=== PATIENT | female | born 1955 | race Caucasian/White ===

== ENCOUNTER 2020-01-12 22:44 | Emergency (ER) | payer MEDICARE, BC ==
[2020-01-12] MEDS ORDERED: ASPIRIN 81 MG TABLET, CHEWABLE PO ONE (23:32)
--- NOTE | 2020-01-12 23:33 | ER Document Report ---
ED Cardiac - General Chief Complaint: Chest Pain Stated Complaint: CHEST PAIN Time Seen by Provider: 01/12/20 23:32 Primary Care Provider: SANFORD ORDONEZ MD [NO LOCAL MD] - Follow up as needed TRAVEL OUTSIDE OF THE [place] IN LAST 30 DAYS: No - HPI Notes: 64-year-old female presents with chest pain. Patient reports onset of chest pain around 7:30 PM while at rest. States that it was started off as a heaviness and sharpness in her left lateral chest, has now moved to the center. Currently feels like a cinderblock is sitting on her chest. Has become progressively worse. She has no radiation of pain. Denies intrascapular pain. Took 1 baby aspirin without relief. She has no shortness of breath or diaphoresis. She has a history of high cholesterol for which she takes a statin. She denies previous known history of cardiac disease, she has not had a stress test previously. She denies use of blood thinners, recent surgery or head bleed. - Related Data Allergies/Adverse Reactions: No Known Allergies Allergy (Unverified 07/18/10 14:48) Past Medical History - General Information source: Patient - Social History Smoking Status: Never Smoker Chew tobacco use (# tins/day): No Frequency of alcohol use: None Drug Abuse: None Family History: Reviewed & Not Pertinent - Past Medical History Cardiac Medical History: Reports: Hx Hypercholesterolemia Denies: Hx Coronary Artery Disease, Hx Heart Attack, Hx Hypertension Pulmonary Medical History: Denies: Hx Asthma, Hx Bronchitis, Hx COPD, Hx Pneumonia Neurological Medical History: Denies: Hx Cerebrovascular Accident, Hx Seizures Musculoskeletal Medical History: Reports Hx Arthritis Past Surgical History: Reports: Hx Hysterectomy - PARTIAL, Hx Orthopedic Surgery - right knee. Denies: Hx Pacemaker Review of Systems - Review of Systems Constitutional: denies: Fever EENT: No symptoms reported Cardiovascular: Chest pain Respiratory: denies: Short of breath Gastrointestinal: denies: Abdominal pain, Nausea, Vomiting Genitourinary: No symptoms reported Female Genitourinary: No symptoms reported Musculoskeletal: denies: Back pain Skin: No symptoms reported Hematologic/Lymphatic: No symptoms reported Neurological/Psychological: No symptoms reported Physical Exam - Vital signs Vitals: Temp 97.4 F 01/12/20 22:44 - General General appearance: Appears well, Alert In distress: None - HEENT Head: Normocephalic, Atraumatic Extraocular movements intact: Yes Pupils: PERRL - Respiratory Chest status: Nontender Breath sounds: Normal - Cardiovascular Rhythm: Regular Heart sounds: Normal auscultation Murmur: No Pulses: Normal: Radial Normal capillary refill: Yes - Abdominal Tenderness: Nontender - Extremities General lower extremity: No: Edema - Neurological Neuro grossly intact: Yes Cognition: Normal Orientation: AAOx4 - Psychological Associated symptoms: Normal affect - Skin Skin Temperature: Warm Course - Re-evaluation Re-evalutation: 64-year-old female history HLD here with central chest pressure/pain, progressively worsening. Heart is RRR, lungs are clear, no peripheral edema. Hemodynamically stable. Initial EKG from triage has minimal ST elevation in 1/aVL, however is less than 1 box, therefore not STEMI criteria at this time. Will repeat serial EKGs. Cardiac work-up to be initiated. Highly concern for an STEMI versus unstable angina. She is not writhing in bed, has symmetric radial pulses, lower suspicion for dissection. 324 mg aspirin and sublingual nitro ordered. 01/13/20 00:22 Reassessed patient. She reports after 2 sublingual nitro it did not really change her pain, however 2 mg of morphine has greatly helped her pain. She remains hemodynamically stable. I discussed the repeat EKG findings with her. Even that there is some improvement of her EKG following the nitro, will start nitro infusion at this time 01/13/20 00:[address] Dave network control technician for cardiology. Discussed EKG changes and positive troponin which is just resulted. He states that patient will need a cath, he requested to be transferred to [facility] if possible. Heparin bolus/infusion ordered 01/13/20 00:35 Called the transfer center at [facility] to initiate transfer, I discussed patient will be needing a cath. Per the transfer center, hopeful patient would be accepted in the morning. There currently are no beds available. Awaiting callback from physician. 01/13/20 00:43 Received a call back from the transfer center, plan is as of now patient will be added to the [facility] schedule in the morning, she likely will be transferred from ED to the [facility]. I have been instructed to call back if patient becomes unstable as there would be an ICU bed 01/13/20 00:51 Patient updated on current plan. She remains hemodynamically stable 01/13/20 06:02 Troponin has now peaked. 2.5 to 3.1 to 2.9 Patient care to be turned over to Dr. Coats, pending transfer to [facility] - Vital Signs Vital signs: Temp Pulse Resp BP Pulse Ox 97.7 F 68 18 121/74 98 01/13/20 05:11 01/12/20 23:08 01/13/20 05:01 01/13/20 05:01 01/13/20 05:01 - Laboratory Result Diagrams: 01/12/20 23:20 01/12/20 23:20 Laboratory results interpreted by me: 01/12/20 01/12/20 23:20 23:20 RDW 15.5 H Sodium 133.2 L - Diagnostic Test Radiology reviewed: Image reviewed, Reports reviewed - EKG Interpretation by Me Additional EKG results interpreted by me: EKG as interpreted by me, performed at 2250. Sinus rhythm, rate 69. Leads I/aVL are abnormal, however elevation is less than 1 box. PVC present. Change from previous EKG dated 10/16/2014 01/13/20 00:02 Repeat EKG, performed at 2357. The slight elevation in 1/aVL has resolved, there is now T wave inversion. There is now biphasic T in V3/V4 01/13/20 03:27 Repeat EKG, performed 0312. No ST segment elevation. The biphasic T waves in V3/V4 have resolved. Overall improved from previous. Critical Care Note - Critical Care Note Total time excluding time spent on procedures (mins): 45 - N STEMI, heparin drip, nitro drip, elevated troponins Discharge - Discharge Clinical Impression: NSTEMI (non-ST elevated myocardial infarction) Disposition: [facility] Referrals: SANFORD ORDONEZ MD [NO LOCAL MD] - Follow up as needed
[2020-01-12] MEDS: NITROGLYCERIN 0.4 MG/TAB 25 TAB/BOTTLE SL PRN (23:41)
[2020-01-12 23:51] LABS: ABSOLUTE BASOPHILS # (AUTO) 0.1 10^3/uL (0.0-0.2); ABSOLUTE EOSINOPHILS # (AUTO) 0.3 10^3/uL (0.0-0.6); ABSOLUTE LYMPHOCYTES (AUTO) 1.4 10^3/uL (0.5-4.7); ABSOLUTE MONOCYTES (AUTO) 0.7 10^3/uL (0.1-1.4); ABSOLUTE NEUT (AUTO) 4.8 10^3/uL (1.7-8.2); BASOPHILS % (AUTO) 1.2 % (0-2); EOSINOPHILS % (AUTO) 3.7 % (0-6); HEMATOCRIT 36.5 % (36.0-47.0); HEMOGLOBIN 12.6 g/dL (12.0-15.5); LYMPHOCYTES % (AUTO) 19.3 % (13-45); MEAN CORPUSCULAR HEMOGLOBIN 28.9 pg (27.0-33.4); MEAN CORPUSCULAR HGB CONC 34.7 g/dL (32.0-36.0); MEAN CORPUSCULAR VOLUME 83 fl (80-97); MONOCYTES % (AUTO) 9.3 % (3-13); PLATELET COUNT 297 10^3/uL (150-450); RED BLOOD COUNT 4.37 10^6/uL (3.72-5.28); RED CELL DISTRIBUTION WIDTH 15.5 % (11.5-14.0); SEGMENTED NEUTROPHILS % (AUTO) 66.5 % (42-78); TOTAL CELLS COUNTED % (AUTO) 100 %; WHITE BLOOD COUNT 7.2 10^3/uL (4.0-10.5)
[2020-01-12 23:58] LABS: INTERNATIONAL RATION (INR) 0.92; PROTHROMBIN TIME 12.6 SEC (11.4-15.4)
[2020-01-12 23:59] LABS: PARTIAL THROMBOPLASTIN TIME 34.4 SEC (23.5-35.8)
[2020-01-13] LABS: ANION GAP 6 (5-19); BLOOD UREA NITROGEN 9 mg/dL (7-20); CALCIUM 9.3 mg/dL (8.4-10.2); CARBON DIOXIDE 27 mmol/L (22-30); CHLORIDE 100 mmol/L (98-107); GLUCOSE 109 mg/dL (75-110); POTASSIUM 3.9 mmol/L (3.6-5.0)
[2020-01-13] MEDS: NITROGLYCERIN 0.4 MG/TAB 25 TAB/BOTTLE SL PRN (00:01)
[2020-01-13] MEDS ORDERED: MORPHINE SULFATE 10 MG/ML INJ IV ONE (00:02)
[2020-01-13] MEDS ORDERED: NITROGLYCERIN/D5W 50 MG/250 ML RTUINJ IV PRN (00:24)
[2020-01-13] MEDS ORDERED: HEPARIN SODIUM,PORCINE/D5W 25,000 UNIT/250 ML RTUINJ IV PRN (00:29)
[2020-01-13] MEDS ORDERED: HEPARIN SOD (PORCINE) 1,000 UNIT/ML 10 ML VIAL IV ONE (00:29)
--- NOTE | 2020-01-13 00:46 | RADIOLOGY REPORT (SQ) ---
XR CHEST 1 VIEW HISTORY: Chest pain. COMPARISON: 10/15/2014 FINDINGS: The heart size is within normal limits. There is no pulmonary vascular congestion. No consolidation, pleural effusion, or pneumothorax is seen. No acute bony findings are seen. IMPRESSION: No evidence of acute cardiopulmonary disease.
[2020-01-13] MEDS ORDERED: HEPARIN SOD (PORCINE) 1,000 UNIT/ML 10 ML VIAL IV PRN (03:29)
[2020-01-13] MEDS: MORPHINE SULFATE 10 MG/ML INJ IV PRN ×3 (04:02→09:15)
[2020-01-13] MEDS ORDERED: TICAGRELOR 90 MG TABLET PO STA (09:24)
--- NOTE | 2020-01-13 09:27 | ER Document Report ---
Doctor's Note Notes: 01/13/20 09:26 The patient continues to have pain. EKG does suggest slightly less than [address] elevation in lead I and aVL. Dr. Dave has been involved in the patient's care, and his got her accepted at [facility] to go directly to the [facility]. He is requesting that we add Brilinta 180 mg p.o. to her current regimen. Earlier he had her nitroglycerin drip increased due to her ongoing pain. 01/13/20 10:26 Dr. Dave since informed me that Dr. Modi has accepted the patient at [facility] and plans to take her directly to the cardiac [employer] [facility]. I have filled out the EMTALA form on his behalf.
--- NOTE | 2020-01-13 09:58 | PDOC CONSULTATION ---
Consultation Consult Date: 01/13/20 Attending physician:: KIMBERLY BABIN Provider Consulted: BETZY DIANE Consult reason:: NSTEMI History of Present Illness Admission Date/PCP: RUSS BLOOM MD History of Present Illness: ANA DAILEY is a 64 year old female with history of arthritis and hyperlipidemia who is consulted to our service for evaluation of myocardial infarction. The patient is a non-smoker. She had been in her usual state of health until last night when, while in a meeting at [employer], she became emotionally upset and developed chest pain. She went home and decided to come to the hospital after 2.5 hours of chest pain that she described as a substernal pressure, severe in nature, radiating to both sides of the chest and not associated with palpitations, diaphoresis, syncope or presyncope. In the emergency room she was found to have a positive troponin which has now peaked at 3.1. Her first EKG is borderline for STEMI however her last EKG no longer meet STEMI criteria. She was placed on a heparin drip and a nitroglycerin drip which had been titrated up to 15 mcg due to recurrence of her chest pain. She recently was administered 2 mg of morphine IV by the ER staff with significant improvement of her chest pain. Physical exam on 01/13/2020 in the emergency room: GENERAL: Pleasant and conversational. Oriented x3 with normal mood. Not in acute distress. Well groomed and well developed. HEENT: Normocephalic, atraumatic. Pupils equal. Sclerae anicteric. Oropharynx moist. NECK: No JVD. No carotid bruits. LUNGS: Clear to auscultation bilaterally. Normal respiratory effort without the use of accessory muscles or intercostal retractions. CARDIOVASCULAR: Regular rate and rhythm, normal S1 and S2 without murmurs, rubs, or gallops. PMI not displaced. ABDOMEN: No masses or tenderness to palpation. No bruit. No splenomegaly or hepatomegaly. No abdominal aorta bruit noted. EXTREMITIES: No edema, no cyanosis, no clubbing. +2 pulses femoral and pedal pulses bilaterally. SKIN: No lesions or rashes. MUSCULOSKELETAL: No chest tenderness to palpation. NEUROLOGIC: Nonfocal. No gross sensory or motor deficits bilateral upper or lower extremities. Past Medical History Cardiac Medical History: Reports: Hyperlipidema Denies: Coronary Artery Disease, Myocardial Infarction, Hypertension Pulmonary Medical History: Denies: Asthma, Bronchitis, Chronic Obstructive Pulmonary Disease (COPD), Pneumonia Neurological Medical History: Denies: Seizures Musculoskeltal Medical History: Reports: Arthritis Hematology: Denies: Anemia Past Surgical History Past Surgical History: Reports: Hysterectomy - PARTIAL, Orthopedic Surgery - right knee Denies: Pacemaker Social History Smoking Status: Never Smoker Electronic Cigarette use?: No Family History Family History: Reviewed & Not Pertinent Parental Family History Reviewed: Yes Children Family History Reviewed: Yes Sibling(s) Family History Reviewed.: Yes Medication/Allergy Allergies/Adverse Reactions: No Known Allergies Allergy (Unverified 07/18/10 14:48) Physical Exam Vital Signs: Temp Pulse Resp BP Pulse Ox 97.8 F 68 16 129/76 H 96 01/13/20 07:21 01/12/20 23:08 01/13/20 09:46 01/13/20 09:46 01/13/20 09:46 Intake & Output 01/12/20 01/13/20 01/14/20 06:59 06:59 06:59 Intake Total 13 Balance 13 Weight 89.811 kg Results Laboratory Results: 01/12/20 23:20 01/12/20 23:20 01/12/20 01/12/20 23:20 23:20 WBC 7.2 RBC 4.37 Hgb 12.6 Hct 36.5 MCV 83 MCH 28.9 MCHC 34.7 RDW 15.5 H Plt Count 297 Seg Neutrophils % 66.5 Sodium 133.2 L Potassium 3.9 Chloride 100 Carbon Dioxide 27 Anion Gap 6 BUN 9 Creatinine 0.63 Est GFR ( Amer) > 60 Glucose 109 Calcium 9.3 01/12/20 01/13/20 01/13/20 23:20 02:04 04:58 Troponin I 2.530 3.140 2.930 01/13/20 07:20 Troponin I 2.530 Impressions: Chest X-Ray 01/12/20 23:33 IMPRESSION: No evidence of acute cardiopulmonary disease. 01/12/20 23:20 01/12/20 23:20 MCV 83 fl (80-97) 01/12/20 23:20 MCH 28.9 pg (27.0-33.4) 01/12/20 23:20 MCHC 34.7 g/dL (32.0-36.0) 01/12/20 23:20 RDW 15.5 % (11.5-14.0) H 01/12/20 23:20 Seg Neutrophils % 66.5 % (42-78) 01/12/20 23:20 Chloride 100 mmol/L (98-107) 01/12/20 23:20 Carbon Dioxide 27 mmol/L (22-30) 01/12/20 23:20 Anion Gap 6 (5-19) 01/12/20 23:20 Est GFR ( Amer) > 60 (>60) 01/12/20 23:20 Glucose 109 mg/dL (75-110) 01/12/20 23:20 Calcium 9.3 mg/dL (8.4-10.2) 01/12/20 23:20 01/12/20 01/13/20 01/13/20 23:20 02:04 04:58 Troponin I 2.530 3.140 2.930 01/13/20 07:20 Troponin I 2.530 Current Medication List Generic Name Dose Route Start Last Admin Trade Name Freq PRN Reason Stop Dose Admin Heparin Sodium (Porcine) 0 - 12,000 unit 01/13/20 03:29 Heparin Inj 1,000 Unit/Ml 10 Ml Vial IV 02/12/20 03:28 .BOLUS PER PROTOCOL PRN RESPOND TO aPTT VALUE Protocol Nitroglycerin/Dextrose 50 mg in 250 mls @ 0 mls/hr 01/13/20 00:24 01/13/20 09:14 Ntg Rtu 50 Mg/D5w 250 Ml Iv Premix Bottle IV 02/12/20 00:23 4.5 mls/hr CONTINUOUS PRN 4.5 mls/hr THIS MED IS NOT "PRN" Titration Protocol Titrate Heparin Sodium/Dextrose 25,000 unit in 250 mls @ 0 mls/hr 01/13/20 00:29 01/13/20 02:09 Heparin Rtu 25,000 Unit/250 Ml D5w Premix IV 02/12/20 00:28 10 mls/hr CONTINUOUS PRN 10 mls/hr THIS MED IS NOT "PRN" Administration Protocol Titrate Morphine Sulfate 2 mg 01/13/20 03:55 01/13/20 09:15 Morphine 10 Mg/Ml Inj IV 01/20/20 03:54 2 mg Q2HP PRN Administration PAIN SCALE PER Nitroglycerin 1 tab 01/12/20 23:32 01/13/20 00:01 Nitrostat 0.4 Mg (1/150 Gr) Tabs 25/Bottle SL 0.4 mg Q5MP PRN Administration FOR CHEST PAIN Discontinued Medications Generic Name Dose Route Start Last Admin Trade Name Rasta PRN Reason Stop Dose Admin Aspirin 324 mg 01/12/20 23:32 01/12/20 23:39 Aspirin 81 Mg Chewable Tablet PO 01/12/20 23:33 324 mg NOW ONE Administration Heparin Sodium (Porcine) 4,000 unit 01/13/20 00:29 01/13/20 00:41 Heparin Inj 1,000 Unit/Ml 10 Ml Vial IV 01/13/20 00:30 4,000 units NOW ONE Administration Morphine Sulfate 2 mg 01/13/20 00:02 01/13/20 00:07 Morphine 10 Mg/Ml Inj IV 01/13/20 00:03 2 mg NOW ONE Administration Ticagrelor 180 mg 01/13/20 09:24 01/13/20 09:32 Brilinta 90 Mg Tablet PO 01/13/20 09:25 180 mg ONCE STA Administration Assessment & Plan - Diagnosis (1) NSTEMI (non-ST elevated myocardial infarction) Is this a current diagnosis for this admission?: Yes Plan: The patient had a non-ST elevation IA and her troponin is downtrending. Unfortunately she continues to have chest pain therefore her nitroglycerin drip will be uptitrated as tolerated by her blood pressure. She had been administered adequate doses of heparin IV as well as aspirin. She had been loaded up on Brilinta 180 mg p.o. She is hemodynamically and electrically stable. She will be transferred to [facility] for further management.
[2020-01-13 11:13] VITALS: BP 112/77
--- NOTE | 2020-01-13 15:18 | EKG REPORT ---
SEVERITY:- ABNORMAL ECG - SINUS RHYTHM LEFT ANTERIOR FASCICULAR BLOCK BORDERLINE R WAVE PROGRESSION, ANTERIOR LEADS : Confirmed by: Rachel Saavedra MD 13-Jan-2020 15:18:15
--- NOTE | 2020-01-13 15:19 | EKG REPORT ---
SEVERITY:- ABNORMAL ECG - SINUS RHYTHM PROBABLE LEFT ATRIAL ABNORMALITY PROBABLE LEFT VENTRICULAR HYPERTROPHY : Confirmed by: Rachel Saavedra MD 13-Jan-2020 15:18:32
--- NOTE | 2020-01-13 15:19 | EKG REPORT ---
SEVERITY:- ABNORMAL ECG - SINUS RHYTHM LEFT ANTERIOR FASCICULAR BLOCK BORDERLINE R WAVE PROGRESSION, ANTERIOR LEADS : Confirmed by: Rachel Saavedra MD 13-Jan-2020 15:18:20
--- NOTE | 2020-01-14 08:58 | EKG REPORT ---
SEVERITY:- ABNORMAL ECG - SINUS RHYTHM VENTRICULAR PREMATURE COMPLEX LEFT ANTERIOR FASCICULAR BLOCK CONSIDER LEFT VENTRICULAR HYPERTROPHY ANTERIOR Q WAVES, POSSIBLY DUE TO LVH : Confirmed by: Rachel Saavedra MD 14-Jan-2020 08:58:09
== END 2020-01-13 11:15 | disposition short-term general hospital (02) ==
LOC: ER 22:44
DX: I21.4 Non-ST elevation (NSTEMI) myocardial infarction (principal); R07.9 Chest pain, unspecified; E78.00 Pure hypercholesterolemia, unspecified
CPT/HCPCS: 93005 ×2; 96376; 99285; 96375; 96365; 96366; 96368; 36415; 85025; 85610; 85730; 80048; 84484; 71045; 93010 ×2; J1644 ×2; A9270 ×3; J2270; J3490